=== PATIENT | female | born 1995 | race Hispanic/Latino ===

== ENCOUNTER 2017-09-07 12:31 | Emergency (ER) | payer SELFPAY ==
[~2017-09-07] VITALS: Ht 157.5 cm; Wt 78.0 kg
[2017-09-07] MEDS ORDERED: IBUPROFEN 400 MG TAB PO ONE (13:00)
--- NOTE | 2017-09-07 14:03 | Diagnostic Imaging Report ---
Examination: CT BRAIN WITHOUT CONTRAST History:Fall; head injury. Comparison studies:None Technique: Axial images were obtained from the skull base to the vertex. Coronal and sagittal images reconstructed from the axial data. Intravenous contrast: None Findings: Scalp: Small right frontal scalp hematoma. Bones: No fractures, blastic or lytic lesions. Brain sulci: Appropriate for age. Ventricles: Normal in size and configuration. No hydrocephalus. Extra-axial space: No abnormalities. Parenchyma: No abnormal densities. No masses, hemorrhage, or acute or chronic cortical based vascular insults.. Sellar/suprasellar region: No abnormalities. Craniocervical junction: Patent foramen magnum. No Chiari one malformation. Incidental findings: None. Impression: Small right frontal scalp hematoma. No acute intracranial abnormalities. Signed by: Dr. Anastasia Francois M.D. on 09/07/2017 1:59 PM
--- NOTE | 2017-09-07 14:04 | Diagnostic Imaging Report ---
Examination: CT Face without Contrast History:Fall; face injury. Comparison studies: None Technique: Axial images were obtained through the maxillofacial region. Coronal and sagittal reconstructions obtained from the axial data. Intravenous contrast: None Findings: Soft tissues: No abnormalities. Bones: No fractures or bony abnormalities. Orbits: Globes: Intact Extra or intraconal abnormalities: None. Paranasal sinuses: Clear. Nasal cavity: Patent. No septal deviation. IMPRESSION: No acute facial abnormality. Signed by: Dr. Anastasia Francois M.D. on 09/07/2017 2:01 PM
--- NOTE | 2017-09-07 14:05 | Diagnostic Imaging Report ---
Examination: CT CERVICAL SPINE WITHOUT CONTRAST HISTORY:Neck injury, fall. COMPARISON:None. TECHNIQUE: Multidetector helical axial images were obtained without contrast from the foramen magnum to T1. Coronal and sagittal reformatted images were done. Bone and soft tissue windows were evaluated. FINDINGS: Alignment:Normal alignment with straightening of normal lordosis. Vertebrae: Normal height and density. No acute fracture, infection or neoplasm. Disc space heights: Normal height. Caliber of spinal canal: Developmentally normal. Posterior fossa and craniocervical junction: Foramen magnum patent. No Chiari 1 malformation. Soft tissues: No abnormality. Degenerative changes: No disc bulge/ herniation or foraminal or canal stenosis. Additional findings: None. IMPRESSION: No abnormalities. Signed by: Dr. Anastasia Francois M.D. on 09/07/2017 2:02 PM
== END 2017-09-07 14:45 | disposition home or self-care (01) ==
LOC: ER 12:31
DX: S06.0X0A Concussion without loss of consciousness, initial encounter (principal); W01.0XXA Fall on same level from slipping, tripping and stumbling without subsequent striking against object, initial encounter; Y92.008 Other place in unspecified non-institutional (private) residence as the place of occurrence of the external cause; F31.9 Bipolar disorder, unspecified
CPT/HCPCS: 70450; 70486; 72125; 99283